=== PATIENT | male | born 1965 | race Caucasian/White ===

== ENCOUNTER 2018-12-19 07:54 | Day surgery (SDC) | payer BC ==
[~2018-12-19 07:54] MED LIST: CEFAZOLIN 2 GM/50 ML (PMX) 50 ML (FOR WT < 120 KG) IVPB; DEXAMETHASONE 4 MG/ML 5 ML INJ; LACTATED RINGER'S 1,000 ML IV; ONDANSETRON 4 MG INJ; SEVOFLURANE 15 MIN; SOD CHLORIDE 0.9% 1,000 ML IV
[2018-12-19] MEDS ORDERED: FENTAnyl 50 MCG/ML VIAL (09:38)
[2018-12-19] MEDS ORDERED: MIDAZOLAM 1 MG/ML 2 ML INJ (09:38)
[2018-12-19] MEDS ORDERED: PROPOFOL 20 ML (09:38)
[2018-12-19] MEDS ORDERED: LIDOCAINE 2% (SDV) 5 ML INJ (09:41)
[2018-12-19] MEDS ORDERED: METOCLOPRAMIDE 10 MG INJ (09:42)
[2018-12-19] MEDS ORDERED: BUPIVACAINE 0.5% (SDV) 30 ML INJ (09:52)
[2018-12-19] MEDS ORDERED: LEVALBUTEROL (NEB) 1.25 MG/0.5 ML AMP HHN (10:00)
[2018-12-19] MEDS ORDERED: KETOROLAC 30 MG INJ IV (10:00)
[2018-12-19] MEDS ORDERED: LABETALOL HCL 20MG INJ IV (10:00)
[2018-12-19] MEDS ORDERED: DIPHENHYDRAMINE 50 MG INJ IV (10:00)
[2018-12-19] MEDS ORDERED: ONDANSETRON 4 MG INJ IV (10:00)
[2018-12-19] MEDS ORDERED: FENTAnyl 50 MCG/ML VIAL IV ×2 (10:00)
[2018-12-19] MEDS ORDERED: HYDROmorphONE 1 MG/5 ML IV SYRINGE IV ×3 (10:00)
[2018-12-19] MEDS ORDERED: hydrALAzine 20 MG INJ IV (10:00)
[2018-12-19] MEDS: POLYMYXIN/BACITRACIN 1L IRRIG IRR (10:36)
[2018-12-19] MEDS: BUPIVACAINE 0.5% (MPF) 30 ML INJ INJ (10:37)
[2018-12-19] MEDS ORDERED: CEFAZOLIN 1 GM INJ (11:15)
[2018-12-19] MEDS ORDERED: POLYMYXIN/BACITRACIN 1L IRRIG (11:41)
== END 2018-12-19 13:15 | disposition home or self-care (01) ==
LOC: SDS 07:54
DX: M21.6X1 Other acquired deformities of right foot (principal); M65.871 Other synovitis and tenosynovitis, right ankle and foot; I10 Essential (primary) hypertension; E78.5 Hyperlipidemia, unspecified
CPT/HCPCS: 27630; 73630-LT